=== PATIENT | female | born 1975 | race African-American/Black ===

== ENCOUNTER → 2016-06-05 | Outpatient (CLI) | payer OTHER ==
[2016-06-05 07:23] LABS: HEMATOCRIT 40.1 % (37-47); MEAN CELL VOLUME 90.1 fL (80-100); MEAN CORPUSCULAR HEMOGLOBIN 32.1 pg (25-34); MEAN CORPUSCULAR HGB CONC 35.7 g/dl (32-36); MEAN PLATELET VOLUME 9.3 fL (7.4-10.4); PLATELET COUNT 209 K/uL (130-400); RED BLOOD COUNT 4.45 M/uL (4.2-5.4); WHITE BLOOD COUNT 5.43 K/uL (4.8-10.8)
[2016-06-06 16:25] LABS: HEP B QUANT <20 IU/mL (<20); HEP B QUANT LOG IU/ML <1.30 Log IU/mL (<1.30)
== END | disposition home or self-care (01) ==
LOC: C.LAB 06:57
PROVIDERS: ATTEND Obstetrics & Gynecology Reproductive Endocrinology
DX: Z11.3 Encounter for screening for infections with a predominantly sexual mode of transmission (principal); Z11.4 Encounter for screening for human immunodeficiency virus [HIV]; Z11.9 Encounter for screening for infectious and parasitic diseases, unspecified; Z13.0 Encounter for screening for diseases of the blood and blood-forming organs and certain disorders involving the immune mechanism

== ENCOUNTER 2018-04-02 05:42 | Inpatient (IN) ==
--- NOTE | 2018-03-25 15:16 | PAT Medication Instructions ---
Medication Instructions Date of Service March 25, 2018 Home Medications Vitamin D3 1 tablet PO daily 1 tablet PO daily DO NOT take the morning of surgery Vitamin D3 1 tablet PO daily 1 tablet PO daily Other Notes If you have any questions please call us at [phone] or [phone] or [phone] or [phone]
--- NOTE | 2018-03-25 15:20 | Anesthesiology Consultation ---
Date of Service March 25, 2018 Assessment & Plan (1) Encounter for pre-operative examination: Plan: Per OB, no labs to be done at PAT; to be done AM DOS. Chart Review Chart Review: Acceptable Risk for Surgery (PENDING LABS AM DOS) and Patient seen in Pre Admission Testing Teaching & Discussion Pre-Anesthesia Teaching/Discussion Notes: Instructed NPO after midnight before surgery,except medications with 15 cc of water. Medication instructions provided according to the [facility] guidelines. History Surgery Operation Date: 04/02/18 07:30 Proposed Procedures p Section in LD - Etienne Guillaume MD Height/Weight Height: 5 ft 11 in Weight: 94.6 kg Allergies Allergy/AdvReac Type Severity Reaction Status Date / Time No Known Allergies Allergy Verified 03/20/18 15:06 Medications Home Medications Medication Instructions Recorded Confirmed Last Taken PNV cmb#95-ferrous fumarate-FA 1 tab PO DAILY 03/20/18 03/20/18 Unknown [] cholecalciferol (vitamin D3) 1,000 unit PO DAILY 03/20/18 03/20/18 Unknown [Vitamin D3] Past Medical History Medical History Acid reflux RELATED History of uterine fibroid S/P MYOMECTOMY Past Family History Family History Father Family history of lung cancer Family history of colon cancer Past Surgical History Surgical History History of myomectomy History of wisdom tooth extraction Past Anesthesia History No Hx of Anesthesia Complications and No Family Hx of Anesthesia Complications History of PONV No Motion Sickness Screening History of Motion Sickness: No Social History Smoking Status: Never smoker Do You Dip or Chew Tobacco: No Hx Alcohol Use: No Hx Substance Use: No substance use type: does not use Exercise / Class Metabolic Activity II 4-5 Yardwork/Stairs/Walk up hill Review of Systems Patient denies chest pain, shortness of breath, dyspnea on exertion, wheezing, palpitations. Physical Exam Vital Signs VITALS BP 108/69 P 96 TEMP 97.9 SP02 100%RA RESP 18 PHYSICAL Full neck and c-spine range of motion. Full TMJ range of motion. TMD 4 finger breaths Mallampati Score 1 Dentition: intact Lungs: clear throughout to auscultation Cardiac: regular rate and rhythm, no murmurs noted Spine: normal Extremities: no edema
[2018-04-02] MEDS ORDERED: LACTATED RINGER'S 1,000 ML IV SCH ×5 (05:45→09:30)
[2018-04-02] MEDS ORDERED: CITRIC ACID/SODIUM CITRATE 15 ML UDC PO SCH ×2 (06:00)
[2018-04-02] MEDS ORDERED: LR 15ML/HR IV SCH (06:00)
[2018-04-02] MEDS ORDERED: CEFAZOLIN 2000MG 2,000 MG/15 ML SYR IV SCH ×2 (06:00)
[2018-04-02 06:29] LABS: Hematocrit (blood only) 36.5 % (37-47); Hemoglobin 13.3 g/dL (12.0-16.0); Mean Corpuscular Hgb Conc 36.4 g/dL (32-36); Mean Corpuscular Volume 91.3 fL (80-100); Mean Platelet Volume 11.1 fL (7.4-10.4); Platelet Count 121 K/uL (130-400); RDW Coefficient of Variation 13.5 % (11.5-14.5); RDW Standard Deviation 44.3 fL (36.4-46.3)
[2018-04-02] MEDS ORDERED: MoRPHine SULFATE PF 1 MG/ML 10 ML AMP/VIAL ONE (07:28)
[2018-04-02] MEDS ORDERED: fentaNYL citrate 100 MCG/2 ML VIAL ONE ×2 (07:28→08:47)
[2018-04-02 07:36] LABS: Basophils # (auto) 0.02 K/uL (0-0.2); Basophils % (auto) 0.3 %; Eosinophils # (auto) 0.09 K/uL (0-0.5); Eosinophils % (auto) 1.2 %; Immature Granulocytes # (auto) 0.03 K/uL (0.00-0.02); Immature Granulocytes % (auto) 0.4 %; Lymphocytes # (auto) 1.77 K/uL (1.2-3.4); Lymphocytes % (auto) 23.4 %; Monocytes % (auto) 9.2 %; Neutrophils # (auto) 4.97 K/uL (1.4-6.5); Neutrophils % (auto) 65.5 %
[2018-04-02] MEDS ORDERED: ePHEDrine sulfate 50 MG/ML AMP IV PRN (07:39)
[2018-04-02] MEDS ORDERED: MoRPHine SULFATE PF 1 MG/ML 10 ML AMP/VIAL INT SPINAL ONE (07:39)
[2018-04-02] MEDS ORDERED: PROMETHAZINE HCL 6.25 MG in SODIUM CHLORIDE 0.9% 50 ML IV PRN (07:39)
[2018-04-02] MEDS ORDERED: NALOXONE HCL 0.4 MG/1 ML VIAL/CARP IV PRN (07:39)
[2018-04-02] MEDS ORDERED: LACTATED RINGER'S 500 ML IV PRN (07:39)
[2018-04-02] MEDS ORDERED: NALOXONE HCL 1 MG in SODIUM CHLORIDE 0.9% 1000ML 1,000 ML IV PRN (07:39)
[2018-04-02] MEDS ORDERED: MEPERIDINE HCL 25 MG/ML CARP IV PRN (07:39)
[2018-04-02] MEDS ORDERED: DiphenhydrAMINE HCL 50 MG/ML VIAL IV PRN ×2 (07:39)
[2018-04-02] MEDS ORDERED: NALBUPHINE HCL INJ 10 MG/ML AMP IV PRN (07:39)
[2018-04-02] MEDS ORDERED: MoRPHine SULFATE 4 MG/ML 1 ML CARP\\VIAL IV PRN (07:39)
[2018-04-02] MEDS ORDERED: NALOXONE HCL 0.08 MG in SYRINGE 1.8 ML IV PRN (07:39)
[2018-04-02] MEDS ORDERED: ONDANSETRON INJ 2 MG/ML 2 ML VIAL IV PRN (07:39)
--- NOTE | 2018-04-02 07:40 | History & Physical Bridge Note ---
Date of Service April 02, 2018 History & Physical Bridge Note I have examined the patient, reviewed the History & Physical and in the interval since the performance of the History & Physical I have noted the following changes of clinical significance: no changes noted
[2018-04-02] MEDS ORDERED: DC INTRASPINAL MORPHINE SCH (07:45)
[2018-04-02] MEDS ORDERED: NO NARCOTICS OR SEDATIVES SCH (07:45)
[2018-04-02] MEDS ORDERED: SODIUM CHLORIDE 0.9% 1000ML 1,000 ML IV SCH (07:45)
[2018-04-02] MEDS ORDERED: PHENYLEPHRINE 100MCG/ML 5ML SYR ONE (08:29)
[2018-04-02] MEDS ORDERED: METHYLERGONOVINE MALEATE 0.2 MG/ML AMP ONE (08:29)
[2018-04-02] MEDS ORDERED: KETOROLAC 30 MG/ML VIAL ONE (08:29)
[2018-04-02] MEDS ORDERED: OXYTOCIN 10 UNITS/ML VIAL ONE (08:29)
[2018-04-02] MEDS ORDERED: ROPIVACAINE 0.5% 5 MG/ML 30 ML VIAL ONE (08:42)
[2018-04-02] MEDS ORDERED: miSOPROStol 200 MCG TAB ONE (09:00)
[2018-04-02] MEDS ORDERED: DIPHTHERIA/TETANUS/PERTUSSIS 0.5 ML SYR/VIAL IM ONE (09:26)
[2018-04-02] MEDS ORDERED: BENZOCAINE 20% AER SPR 82.5 GM CAN EXT PRN (09:26)
[2018-04-02] MEDS ORDERED: HYDROCORTISONE ACETATE 25 MG SUPP PR PRN (09:26)
[2018-04-02] MEDS ORDERED: SENNA 8.6 MG TAB PO PRN (09:26)
[2018-04-02] MEDS ORDERED: SUPERCREAM 0.870% 15 GM JAR EXT PRN (09:26)
--- NOTE | 2018-04-02 09:26 | Anesthesiology Progress Note ---
Date of Service April 02, 2018 Anesthesia Post Procedure Vital Signs Vital Signs: Temp Pulse Resp BP Pulse Ox 04/02/18 09:22 90 98 04/02/18 09:18 88 109/69 04/02/18 09:17 76 95 04/02/18 06:02 36.8 C 18 04/02/18 05:54 102 H 113/63 Notes Mental Status: alert / awake / arousable Patient Amnestic to Procedure: Yes Nausea / Vomiting: adequately controlled Pain: adequately controlled Airway Patency, RR, SpO2: stable & adequate BP & HR: stable & adequate Hydration State: stable & adequate Neuraxial Anesthesia: was administered and sensory block is resolving Anesthetic Complications: no major complications apparent
[2018-04-02] MEDS ORDERED: miSOPROStol 200 MCG TAB PR ONE (09:57)
[2018-04-02] MEDS ORDERED: OXYTOCIN 10 UNITS/ML VIAL IM ONE (09:59)
[2018-04-02] MEDS ORDERED: ROPIVACAINE 0.5% 5 MG/ML 30 ML VIAL INFIL SCH (10:15)
[2018-04-02] MEDS: OXYTOCIN 20 UNITS in LACTATED RINGER'S 1,000 ML IV SCH ×2 (11:12→19:40)
--- NOTE | 2018-04-02 12:16 | Operative Report ---
DATE OF OPERATION: 04/02/2018 INDICATION FOR SURGERY: This is a 42-year-old status post myomectomy who was at term and was scheduled to undergo a primary section because of history of myomectomy. PREOPERATIVE DIAGNOSES: 1. at term. 2. Status post myomectomy. 3. Advanced maternal age. POSTOPERATIVE DIAGNOSES: 1. at term. 2. Status post myomectomy. 3. Advanced maternal age. SURGEON: Etienne Guillaume MD EMBROIDERY SUPERVISOR: Ethel Ceballos MD FINDINGS: Live female. Weight and Apgars in the pediatric record. Uterus appeared grossly normal. There was a small anterior fibroid about 2 inches. The rest of the pelvic exam was unremarkable. COMPLICATIONS: None. DRAINS: Harman catheter. ESTIMATED BLOOD LOSS: 700 mL. URINE OUTPUT: 150 mL clear urine at end of the procedure. INTRAVENOUS FLUIDS: 1200 mL. ANESTHESIA: Spinal. DESCRIPTION OF PROCEDURE: The patient was taken to the operating room where she was prepped and draped in normal sterile fashion. Timeout was called. A Pfannenstiel incision was made with a scalpel and carried down to the fascia. Fascia was incised in the midline and extended laterally on both sides. Fascia was sharply dissected off the rectus abdominus muscles superiorly and inferiorly. The peritoneum was identified and entered sharply. Once inside the abdomen, the findings were as dictated above. The vesicouterine peritoneum was sharply dissected off the lower segment of the uterus. A transverse incision was made on the uterus and extended laterally on both sides. was delivered with the head first. There was no nuchal cord. Infant was delivered and handed over to the pediatric team. Weight and Apgars in the pediatric record. Cord was clamped and cut. Cord blood was obtained. Placenta was manually removed. The uterus was closed in 2 layers using Vicryl. There was good hemostasis at the end of the closure. Copious amount of irrigation was used to irrigate the abdomen. The uterus was not exteriorized. The Raad retractor which had been placed earlier in the abdomen for retraction was removed. Peritoneum was closed in a running fashion. Rectus abdominis muscle was reapproximated with [id number] suture, plain suture. The fascia was closed in a running fashion with Vicryl stitch. SubQ space was closed with plain suture and the skin was closed with saurav. All instruments were removed from the abdomen including sponges, needles, retractors and accounted for x2. The patient and baby are in recovery in stable condition. I attest to the content of the Intraoperative Record and any orders documented therein. Any exception s are noted below.
[2018-04-02] MEDS: SIMETHICONE 80 MG CHEW PO SCH ×3 (12:56→19:41)
[2018-04-02] MEDS: KETOROLAC 30 MG/ML VIAL IV PRN (18:48)
[2018-04-02] MEDS ORDERED: DOCUSATE SODIUM 100 MG CAP ONE (19:38)
[2018-04-02] MEDS: DOCUSATE SODIUM 100 MG CAP PO SCH (19:40)
[2018-04-03] MEDS: KETOROLAC 30 MG/ML VIAL IV PRN (01:24)
[2018-04-03] MEDS ORDERED: ONDANSETRON INJ 2 MG/ML 2 ML VIAL IV PRN (01:40)
[2018-04-03] MEDS ORDERED: MEPERIDINE HCL 50 MG/ML CARP IV PRN (01:40)
[2018-04-03] MEDS ORDERED: DiphenhydrAMINE HCL 50 MG/ML VIAL IV PRN (01:40)
[2018-04-03] MEDS ORDERED: PROMETHAZINE HCL 25 MG in SODIUM CHLORIDE 0.9% 50 ML IV PRN (01:40)
[2018-04-03] MEDS ORDERED: KETOROLAC 30 MG/ML VIAL IV PRN (01:40)
[2018-04-03] MEDS ORDERED: CEFAZOLIN 2000MG 2,000 MG/15 ML SYR IV SCH (06:00)
[2018-04-03] MEDS ORDERED: CITRIC ACID/SODIUM CITRATE 15 ML UDC PO SCH (06:00)
[2018-04-03 06:25] LABS: Basophils # (auto) 0.03 K/uL (0-0.2); Basophils % (auto) 0.2 %; Eosinophils # (auto) 0.17 K/uL (0-0.5); Eosinophils % (auto) 1.1 %; Hemoglobin 11.4 g/dL (12.0-16.0); Immature Granulocytes # (auto) 0.04 K/uL (0.00-0.02); Immature Granulocytes % (auto) 0.3 %; Lymphocytes # (auto) 1.47 K/uL (1.2-3.4); Lymphocytes % (auto) 9.2 %; Mean Corpuscular Hgb Conc 35.6 g/dL (32-36); Mean Corpuscular Volume 91.7 fL (80-100); Mean Platelet Volume 10.7 fL (7.4-10.4); Monocytes # (auto) 1.02 K/uL (0.11-0.59); Monocytes % (auto) 6.4 %; Neutrophils % (auto) 82.8 %; Platelet Count 117 K/uL (130-400); RDW Coefficient of Variation 13.6 % (11.5-14.5); RDW Standard Deviation 44.9 fL (36.4-46.3); Red Blood Count 3.49 M/uL (4.2-5.4); White Blood Count 15.93 K/uL (4.8-10.8)
--- NOTE | 2018-04-03 09:05 | Obstetrical Progress Note ---
Date of Service April 03, 2018 Subjective doing well passing gas no pain Physical Exam 2 Vital Signs (Past 24 Hours): Last Vital Signs Temp 36.8 C 04/03/18 03:35 Pulse 84 04/03/18 03:35 Resp 18 04/03/18 03:35 BP 103/64 04/03/18 03:35 Pulse Ox 96 04/02/18 23:00 Constitutional: WD/WN, vitals as above comfortable Skin: no rashes, warm and dry incision clean/dry/intact abdomen slightly distended no edema neg Jie's will increase ambulation POD#1 Primary for myomectomy Results & Data Laboratory Results Laboratory Results - last 48 hr 04/02/18 04/02/18 04/03/18 06:13 06:13 06:15 WBC 7.50 15.93 H RBC 4.00 L 3.49 L Hgb 13.3 11.4 L Hct 36.5 L 32.0 L MCV 91.3 91.7 MCH 33.3 32.7 MCHC 36.4 H 35.6 RDW Std Deviation 44.3 44.9 RDW Coeff of Gerardo 13.5 13.6 Plt Count 121 L 117 L MPV 11.1 H 10.7 H Immature Gran % (Auto) 0.4 0.3 Neut % (Auto) 65.5 82.8 Lymph % (Auto) 23.4 9.2 [place] % (Auto) 9.2 6.4 Eos % (Auto) 1.2 1.1 Baso % (Auto) 0.3 0.2 Immature Gran # (Auto) 0.03 H 0.04 H Neut # (Auto) 4.97 13.20 H Lymph # (Auto) 1.77 1.47 [place] # (Auto) 0.70 H 1.02 H Eos # (Auto) 0.09 0.17 Baso # (Auto) 0.02 0.03 Absolute Nucleated RBC 0.00 Nucleated RBC % (auto) 0.0 Blood Type O Positive Antibody Screen NEGATIVE
[2018-04-03] MEDS: IBUPROFEN 600 MG TAB PO PRN ×3 (09:12→19:53)
[2018-04-03] MEDS: PRENATAL VITAMIN 1 TAB PO SCH (09:20)
[2018-04-03] MEDS: FERROUS SULFATE 325 MG TAB PO SCH (09:21)
[2018-04-03] MEDS: SIMETHICONE 80 MG CHEW PO SCH ×4 (09:23→19:53)
[2018-04-03] MEDS: OXYCODONE/ACETAMINOPHEN 5mg/325mg TAB PO PRN ×2 (13:14→22:22)
[2018-04-03] MEDS: DOCUSATE SODIUM 100 MG CAP PO SCH ×2 (13:42→19:53)
[2018-04-03] MEDS ORDERED: BISACODYL 5 MG TABEC PO SCH (20:00)
[2018-04-04] MEDS: OXYCODONE/ACETAMINOPHEN 5mg/325mg TAB PO PRN ×3 (06:34→18:59)
[2018-04-04] MEDS: IBUPROFEN 600 MG TAB PO PRN ×3 (06:34→19:00)
[2018-04-04 06:50] LABS: Hematocrit (blood only) 29.2 % (37-47); Hemoglobin 10.2 g/dL (12.0-16.0)
[2018-04-04] MEDS: FERROUS SULFATE 325 MG TAB PO SCH (09:02)
[2018-04-04] MEDS: MAGNESIUM HYDROXIDE SUSP 30 ML UDC PO PRN (09:02)
[2018-04-04] MEDS: DOCUSATE SODIUM 100 MG CAP PO SCH ×2 (09:02→20:25)
[2018-04-04] MEDS: PRENATAL VITAMIN 1 TAB PO SCH (09:02)
[2018-04-04] MEDS: SIMETHICONE 80 MG CHEW PO SCH ×4 (09:02→20:25)
[2018-04-04] MEDS ORDERED: BISACODYL 10 MG SUPP PR PRN (09:26)
--- NOTE | 2018-04-04 10:46 | Obstetrical Progress Note ---
Date of Service April 04, 2018 Assessment & Plan (1) delivery delivered: Pt doing well S/P c/sec day #2 dressing is intact and dry Tolerating PO food and Meds anticipate disch tomorrow Subjective Ambulation: ambulating normally Voiding: no voiding problems Passing Gas:: Yes Diet Tolerance:: clear liquids Lochia:: Small Feeding Type:: breast feeding Review of Systems All systems reviewed & are unremarkable except as noted in HPI & below Physical Exam Vital Signs (Past 24 Hours) Last Vital Signs Temp 36.7 C 04/03/18 23:40 Pulse 75 04/03/18 23:40 Resp 18 04/03/18 23:40 BP 102/65 04/03/18 23:40 Pulse Ox 97 04/03/18 16:30 Constitutional WD/WN, vitals as above well developed and well nourished Eyes PERRL, conjunctivae normal, anicteric sclerae ENMT external ear and nose normal, oropharynx normal Neck trachea midline, no thyromegaly Respiratory normal respiratory effort, lungs clear to auscultation Cardiovascular RRR, no murmur, no edema Chest (Breasts) normal inspection/palpation of breasts Gastrointestinal (Abdomen) normal bowel sounds, soft, nontender, no hepatosplenomegaly Musculoskeletal no cyanosis or clubbing, extremities motor strength 5/5 Skin no rashes, warm and dry + incision (Clean,dry and intact) Neurologic patellar DTR's 2+ bilat, sensation intact Psychiatric A+Ox3, euthymic affect Genitourinary normal external appearance Lymphatic no cervical or axillary lymphadenopathy
[2018-04-05] MEDS: IBUPROFEN 600 MG TAB PO PRN ×2 (04:15→11:05)
[2018-04-05] MEDS: FERROUS SULFATE 325 MG TAB PO SCH (08:31)
[2018-04-05] MEDS: SIMETHICONE 80 MG CHEW PO SCH ×2 (08:31→12:27)
[2018-04-05] MEDS: DOCUSATE SODIUM 100 MG CAP PO SCH (08:31)
[2018-04-05] MEDS: PRENATAL VITAMIN 1 TAB PO SCH (08:31)
--- NOTE | 2018-04-05 08:31 | Obstetrical Progress Note ---
Date of Service April 05, 2018 Subjective Patient is seen and examined. She feels well, no complaints. Pain is under control with oral meds. Ambulating without dizziness Voiding without difficulty Tolerating regular diet with out N&V Flatus + BM none Bleeding is minimal No fever/ chills/ CP/ SOB/ N&V/ Leg pain Breast feeding without problems Vital Signs Temp Pulse Resp BP Pulse Ox 04/05/18 00:22 36.7 C 98 H 18 117/72 98 04/04/18 11:26 36.7 C 77 18 104/69 96 Lab Results 04/02/18 04/02/18 04/03/18 Range/Units 06:13 06:13 06:15 WBC 7.50 15.93 H (4.8-10.8) K/uL RBC 4.00 L 3.49 L (4.2-5.4) M/uL Hgb 13.3 11.4 L (12.0-16.0) g/dL Hct 36.5 L 32.0 L (37-47) % MCV 91.3 91.7 (80-100) fL MCH 33.3 32.7 (25-34) pg MCHC 36.4 H 35.6 (32-36) g/dL RDW Std Deviation 44.3 44.9 (36.4-46.3) fL RDW Coeff of Gerardo 13.5 13.6 (11.5-14.5) % Plt Count 121 L 117 L (130-400) K/uL MPV 11.1 H 10.7 H (7.4-10.4) fL Immature Gran % (Auto) 0.4 0.3 % Neut % (Auto) 65.5 82.8 % Lymph % (Auto) 23.4 9.2 % [place] % (Auto) 9.2 6.4 % Eos % (Auto) 1.2 1.1 % Baso % (Auto) 0.3 0.2 % Immature Gran # (Auto) 0.03 H 0.04 H (0.00-0.02) K/uL Neut # (Auto) 4.97 13.20 H (1.4-6.5) K/uL Lymph # (Auto) 1.77 1.47 (1.2-3.4) K/uL [place] # (Auto) 0.70 H 1.02 H (0.11-0.59) K/uL Eos # (Auto) 0.09 0.17 (0-0.5) K/uL Baso # (Auto) 0.02 0.03 (0-0.2) K/uL Absolute Nucleated RBC 0.00 (0-0) K/uL Nucleated RBC % (auto) 0.0 % Blood Type O Positive Antibody Screen NEGATIVE 04/04/18 Range/Units 06:28 WBC (4.8-10.8) K/uL RBC (4.2-5.4) M/uL Hgb 10.2 L (12.0-16.0) g/dL Hct 29.2 L (37-47) % MCV (80-100) fL MCH (25-34) pg MCHC (32-36) g/dL RDW Std Deviation (36.4-46.3) fL RDW Coeff of Gerardo (11.5-14.5) % Plt Count (130-400) K/uL MPV (7.4-10.4) fL Immature Gran % (Auto) % Neut % (Auto) % Lymph % (Auto) % [place] % (Auto) % Eos % (Auto) % Baso % (Auto) % Immature Gran # (Auto) (0.00-0.02) K/uL Neut # (Auto) (1.4-6.5) K/uL Lymph # (Auto) (1.2-3.4) K/uL [place] # (Auto) (0.11-0.59) K/uL Eos # (Auto) (0-0.5) K/uL Baso # (Auto) (0-0.2) K/uL Absolute Nucleated RBC (0-0) K/uL Nucleated RBC % (auto) % Blood Type Antibody Screen PE: General: Alert, orientedx3, NAD CVS: S1S2 RRR Lungs; CTAB Abd: soft, NT, ND, BS+, fundus firm, below Umbilicus Incision/ Dressing: Clean, dry, intact Perineum intact, Lochia rubra minimal Ext; NT, no edema AP: 42 yo s/p C Section, pod# 3 VSS Afebrile doing well Continue routine postop care Encourage ambulation, PO intake All questions were answered D/C home if baby will be discharged Physical Exam 2 Vital Signs (Past 24 Hours): Last Vital Signs Temp 36.7 C 04/05/18 00:22 Pulse 98 H 04/05/18 00:22 Resp 18 04/05/18 00:22 BP 117/72 04/05/18 00:22 Pulse Ox 98 04/05/18 00:22
[2018-04-05] MEDS: MAGNESIUM HYDROXIDE SUSP 30 ML UDC PO PRN (12:32)
== END 2018-04-05 15:40 | disposition home or self-care (01) | DRG 788 ==
LOC: 4S1 05:42 → EDSTATUS 07:30 → 4S2 11:29